=== PATIENT | male | born 1980 | race Caucasian/White ===

== ENCOUNTER 2021-10-16 17:41 | Inpatient (IN) ==
[2021-10-16] MEDS ORDERED: Haloperidol Lactate 5 MG/ML VIAL IM ONE (20:32)
[2021-10-16] MEDS ORDERED: Ibuprofen 400 MG TABLET PO PRN (20:37)
[2021-10-16] MEDS ORDERED: *HR* LORazepam 2 MG/ML VIAL IM PRN ×4 (20:37→21:10)
[2021-10-16] MEDS ORDERED: Haloperidol Lactate 5 MG/ML VIAL IM PRN (20:37)
[2021-10-16] MEDS ORDERED: MOM Conc 10 ML UD.LIQ PO PRN (20:37)
[2021-10-16] MEDS ORDERED: Mag Hydrox/Al Hydrox/Simeth 30 ML UDC PO PRN (20:37)
[2021-10-16] MEDS: Thiamine (B-1) 100 MG TABLET PO SCH (21:35)
[2021-10-16] MEDS: Folic Acid 1 MG TABLET PO SCH (21:35)
[2021-10-17] MEDS: Nicotine 21 MG PATCH.TD24 TD SCH (09:31)
[2021-10-17] MEDS: Thiamine (B-1) 100 MG TABLET PO SCH (09:32)
[2021-10-17] MEDS: Folic Acid 1 MG TABLET PO SCH (09:32)
[2021-10-17] MEDS: OXcarbazepine 150 MG TABLET PO SCH (20:48)
[2021-10-18] MEDS ORDERED: Venlafaxine XR (24 HR) 75 MG CAP.ER.24H PO SCH (09:00)
[2021-10-18] MEDS: OXcarbazepine 150 MG TABLET PO SCH ×2 (09:14→21:08)
[2021-10-18] MEDS: Thiamine (B-1) 100 MG TABLET PO SCH (09:14)
[2021-10-18] MEDS: Folic Acid 1 MG TABLET PO SCH (09:15)
[2021-10-18] MEDS: Nicotine 21 MG PATCH.TD24 TD SCH (09:20)
[2021-10-18] MEDS: Nicotine 2 MG GUM BC PRN (17:53)
[2021-10-18] MEDS: haloperidoL 5 MG TABLET PO SCH (21:21)
[2021-10-19] MEDS: traZODone 50 MG TABLET PO PRN ×2 (00:15→20:22)
[2021-10-19] MEDS: hydrOXYzine pamoate 25 MG CAPSULE PO PRN ×2 (00:15→20:22)
[2021-10-19] MEDS: OXcarbazepine 150 MG TABLET PO SCH ×2 (09:16→20:21)
[2021-10-19] MEDS: haloperidoL 5 MG TABLET PO SCH (09:16)
[2021-10-19] MEDS: Thiamine (B-1) 100 MG TABLET PO SCH (09:16)
[2021-10-19] MEDS: Folic Acid 1 MG TABLET PO SCH (09:16)
[2021-10-19] MEDS: Nicotine 2 MG GUM BC PRN (17:33)
[2021-10-19] MEDS: *HR* LORazepam 1 MG TABLET PO PRN ×2 (17:33→21:37)
[2021-10-19] MEDS: haloperidoL 5 MG TABLET PO PRN ×2 (17:33→21:37)
[2021-10-19] MEDS: Nicotine 21 MG PATCH.TD24 TD SCH (17:49)
[2021-10-20] MEDS: traZODone 50 MG TABLET PO PRN
[2021-10-20] MEDS: *HR* LORazepam 1 MG TABLET PO PRN ×2 (02:29→07:06)
[2021-10-20] MEDS: haloperidoL 5 MG TABLET PO PRN (02:29)
[2021-10-20] MEDS: hydrOXYzine pamoate 25 MG CAPSULE PO PRN (06:43)
[2021-10-20] MEDS ORDERED: Haloperidol Decanoate 50 MG/ML VIAL IM ONE (09:00)
[2021-10-20] MEDS: Thiamine (B-1) 100 MG TABLET PO SCH (09:47)
[2021-10-20] MEDS: Nicotine 21 MG PATCH.TD24 TD SCH (09:47)
[2021-10-20] MEDS: *HR* LORazepam 1 MG TABLET PO SCH ×3 (09:48→20:25)
[2021-10-20] MEDS: OXcarbazepine 150 MG TABLET PO SCH ×2 (09:48→20:26)
[2021-10-20] MEDS: Folic Acid 1 MG TABLET PO SCH (09:48)
[2021-10-20] MEDS: Levothyroxine 25 MCG TABLET PO SCH (09:48)
[2021-10-20] MEDS ORDERED: Naltrexone HCl 50 MG TABLET PO ONE (10:00)
[2021-10-20] MEDS ORDERED: haloperidoL 5 MG TABLET PO SCH ×2 (21:00)
[2021-10-21] MEDS: Nicotine 21 MG PATCH.TD24 TD SCH (08:35)
[2021-10-21] MEDS: Thiamine (B-1) 100 MG TABLET PO SCH (08:36)
[2021-10-21] MEDS: Levothyroxine 25 MCG TABLET PO SCH (08:36)
[2021-10-21] MEDS: OXcarbazepine 150 MG TABLET PO SCH ×2 (08:37→20:13)
[2021-10-21] MEDS: Folic Acid 1 MG TABLET PO SCH (08:37)
[2021-10-21] MEDS: haloperidoL 5 MG TABLET PO PRN (13:06)
[2021-10-21] MEDS: *HR* LORazepam 1 MG TABLET PO PRN (13:06)
[2021-10-21] MEDS: traZODone 50 MG TABLET PO PRN (20:13)
[2021-10-21] MEDS: hydrOXYzine pamoate 25 MG CAPSULE PO PRN (20:13)
[2021-10-22] MEDS: *HR* LORazepam 1 MG TABLET PO PRN (05:30)
[2021-10-22] MEDS: haloperidoL 5 MG TABLET PO PRN (05:31)
[2021-10-22] MEDS: Levothyroxine 25 MCG TABLET PO SCH (07:21)
[2021-10-22] MEDS: Folic Acid 1 MG TABLET PO SCH (09:27)
[2021-10-22] MEDS: Thiamine (B-1) 100 MG TABLET PO SCH (09:27)
[2021-10-22] MEDS: OXcarbazepine 150 MG TABLET PO SCH ×2 (09:27→21:02)
[2021-10-22] MEDS: Nicotine 21 MG PATCH.TD24 TD SCH (09:27)
[2021-10-22] MEDS: traZODone 50 MG TABLET PO PRN (21:02)
[2021-10-22] MEDS: hydrOXYzine pamoate 25 MG CAPSULE PO PRN (21:02)
[2021-10-23] MEDS: Levothyroxine 25 MCG TABLET PO SCH (06:16)
[2021-10-23] MEDS: OXcarbazepine 150 MG TABLET PO SCH ×2 (08:56→20:45)
[2021-10-23] MEDS: Thiamine (B-1) 100 MG TABLET PO SCH (08:56)
[2021-10-23] MEDS: Folic Acid 1 MG TABLET PO SCH (08:56)
[2021-10-23] MEDS: Nicotine 21 MG PATCH.TD24 TD SCH (08:57)
[2021-10-23] MEDS: hydrOXYzine pamoate 25 MG CAPSULE PO PRN (20:46)
[2021-10-23] MEDS: traZODone 50 MG TABLET PO PRN (20:47)
[2021-10-24] MEDS: OXcarbazepine 150 MG TABLET PO SCH ×2 (10:55→20:45)
[2021-10-24] MEDS: Levothyroxine 25 MCG TABLET PO SCH (10:56)
[2021-10-24] MEDS: Folic Acid 1 MG TABLET PO SCH (10:56)
[2021-10-24] MEDS: Thiamine (B-1) 100 MG TABLET PO SCH (10:57)
[2021-10-24] MEDS: Nicotine 21 MG PATCH.TD24 TD SCH (10:57)
[2021-10-24] MEDS: Naltrexone HCl 50 MG TABLET PO SCH (16:35)
[2021-10-24] MEDS: traZODone 50 MG TABLET PO PRN (20:45)
[2021-10-24] MEDS: hydrOXYzine pamoate 25 MG CAPSULE PO PRN (20:45)
[2021-10-25] MEDS: Naltrexone HCl 50 MG TABLET PO SCH (09:05)
[2021-10-25] MEDS: Thiamine (B-1) 100 MG TABLET PO SCH (09:05)
[2021-10-25] MEDS: Nicotine 21 MG PATCH.TD24 TD SCH (09:05)
[2021-10-25] MEDS: OXcarbazepine 150 MG TABLET PO SCH ×2 (09:05→20:53)
[2021-10-25] MEDS: Levothyroxine 25 MCG TABLET PO SCH (09:06)
[2021-10-25] MEDS: Folic Acid 1 MG TABLET PO SCH (09:06)
[2021-10-25] MEDS: traZODone 50 MG TABLET PO PRN (20:53)
[2021-10-26] MEDS: OXcarbazepine 150 MG TABLET PO SCH ×2 (08:15→21:11)
[2021-10-26] MEDS: Naltrexone HCl 50 MG TABLET PO SCH (08:16)
[2021-10-26] MEDS: *HR* LORazepam 1 MG TABLET PO PRN ×2 (08:16→14:54)
[2021-10-26] MEDS: Thiamine (B-1) 100 MG TABLET PO SCH (08:16)
[2021-10-26] MEDS: Folic Acid 1 MG TABLET PO SCH (08:16)
[2021-10-26] MEDS: haloperidoL 5 MG TABLET PO PRN ×2 (08:16→14:54)
[2021-10-26] MEDS: Levothyroxine 25 MCG TABLET PO SCH (08:16)
[2021-10-26] MEDS ORDERED: Sennosides/Docusate Sodium TABLET PO PRN (11:02)
[2021-10-26] MEDS ORDERED: Nicotine 2 MG GUM BC PRN (11:28)
[2021-10-26] MEDS ORDERED: QUEtiapine Fumarate 25 MG TABLET PO PRN (12:00)
[2021-10-26] MEDS: Nicotine 21 MG PATCH.TD24 TD SCH (13:52)
[2021-10-26] MEDS: Sennosides/Docusate Sodium TABLET PO SCH (17:15)
[2021-10-26] MEDS: traZODone 50 MG TABLET PO PRN (21:12)
[2021-10-27] MEDS: Levothyroxine 25 MCG TABLET PO SCH (05:49)
[2021-10-27] MEDS: *HR* LORazepam 1 MG TABLET PO PRN (05:57)
[2021-10-27] MEDS: haloperidoL 5 MG TABLET PO PRN (05:57)
[2021-10-27] MEDS: OXcarbazepine 150 MG TABLET PO SCH (09:34)
[2021-10-27] MEDS: Thiamine (B-1) 100 MG TABLET PO SCH (09:34)
[2021-10-27] MEDS: Sennosides/Docusate Sodium TABLET PO SCH (09:35)
[2021-10-27] MEDS: Folic Acid 1 MG TABLET PO SCH (09:35)
[2021-10-27] MEDS: Naltrexone HCl 50 MG TABLET PO SCH (09:35)
[2021-10-27 09:42] VITALS: BP 111/77; PULSE 100; TEMP 98; O2SAT 98
[2021-10-27 10:36] LABS: Influenza A PCR Negative (Negative); Influenza B PCR Negative (Negative); Resp. Syncytial Virus PCR Negative (Negative)
[2021-10-27 10:37] LABS: SARS-CoV-2 by PCR (In House) Negative (Negative)
[2021-10-27] MEDS ORDERED: QUEtiapine Fumarate 100 MG TABLET PO SCH ×2 (21:00)
== END 2021-10-27 12:55 | disposition home or self-care (01) | DRG 885 ==
LOC: EMEROOARM 17:41 → 1ANU 21:29
PROVIDERS: ADMIT Psychiatry & Neurology Psychiatry; ATTEND Psychiatry & Neurology Psychiatry